=== PATIENT | male | born 1980 | race Caucasian/White ===

== ENCOUNTER 2020-04-30 21:13 | Emergency (ER) | payer BC ==
[~2020-04-30] VITALS: Ht 167.6 cm; Wt 102.1 kg
[2020-04-30 21:25] VITALS: Ht 167.6 cm; Wt 102.1 kg
[2020-05-01 04:30] VITALS: BP 115/76
== END 2020-05-01 04:30 | disposition home or self-care (01) ==
LOC: ED 21:13
DX: M54.5 Low back pain (principal)
CPT/HCPCS: J1885